=== PATIENT | female | born 1950 | race Caucasian/White ===

== ENCOUNTER → 2017-12-21 | Outpatient (CLI) | payer MEDICARE, BC ==
--- NOTE | 2017-12-21 08:19 | US ---
EXAMINATION TYPE: US thyroid st tissue head/neck DATE OF EXAM: 12/21/2017 COMPARISON: NONE CLINICAL HISTORY: E04.2 Nontoxic multinodular goiter. Hx of nodules. Patient states she has had biop sy in the past= benign. Patient states not being on any thyroid medications. GLAND SIZE: Right Lobe: 5.4 x 3.5 x 3.1 cm Overall Parenchyma: heterogenous Left Lobe: 4.9 x 2.3 x 2.4 cm Overall Parenchyma: heterogeneous Isthmus Thickness: 1.0 cm NODULES RIGHT: # of nodules measured on right: 3 Multiple nodules seen. Prominent nodules are measured. 1. 0.5 X 0.6 cm calcification at the upper pole with well-defined margins. This nodule is wider th an tall. Prior size: No prior 2. 1.3 X 1.3 x 1.3 cm hypoechoic solid nodule at the mid pole with irregular margins; interrupted pe ripheral calcification. This nodule is taller than wide and shows intranodular vascularity. Prior size: No prior 3. 2.8 X 2.7 x 1.2 cm isoechoic solid nodule at the mid pole with well-defined margins. This nodule is taller than wide and shows intranodular vascularity. Prior size: No prior LEFT: # of nodules measured on left: 2 Multiple nodules seen. Prominent nodules measured. 1. 0.6 X 0.5 x 0.5 cm hypoechoic solid nodule at the lower pole with irregular margins; interrupted peripheral calcification. This nodule is taller than wide and shows no intranodular vascularity. Prior size: No prior 2. 2.1 X 2.1 x 1.3 cm hypoechoic solid nodule at the mid pole with well-defined margins. This nodul e is taller than wide and shows intranodular vascularity. Prior size: No prior ISTHMUS: # of nodules measured in the isthmus: 1 1. 1.3 X 1.2 x 1.2 cm hypoechoic solid nodule right lateral with irregular margins. This nodule is taller than wide and shows no intranodular vascularity. Prior size: No prior Bilateral neck scanned, no evidence of lymphadenopathy. Right thyroid lobe appears enlarged. IMPRESSION: Multiple nonspecific thyroid nodules. The need to biopsy should be made on a clinical basis. Correlat e clinically with thyroid function testing and clinical findings.
== END | disposition home or self-care (01) ==
LOC: RADUSWWP 07:34
PROVIDERS: ATTEND Internal Medicine Endocrinology, Diabetes & Metabolism
DX: E04.2 Nontoxic multinodular goiter (principal)
CPT/HCPCS: 36415; 76536; 84443

== ENCOUNTER → 2018-02-21 | Outpatient (CLI) | payer MEDICARE, BC ==
--- NOTE | 2018-02-22 09:43 | MM ---
Reason for exam: screening (asymptomatic). Last mammogram was performed 2 years and 1 month ago. History: Patient is postmenopausal and is nulliparous. Family history of breast cancer in maternal aunt. Took estrogen for 3 years beginning at age 51. Took progesterone for 3 years beginning at age 51. Physical Findings: A clinical breast exam by your physician is recommended on an annual basis and results should be correlated with mammographic findings. MG 3D Screening Mammo W/Cad Bilateral CC and MLO view(s) were taken. Prior study comparison: January 08, 2016, bilateral MG screening mammo w CAD. November 22, 2014, bilateral MG screening mammo w CAD. The breast tissue is heterogeneously dense. This may lower the sensitivity of mammography. Stable benign calcifications. There is no discrete abnormality. No significant changes when compared with prior studies. ASSESSMENT: Benign, BI-RAD 2 RECOMMENDATION: Routine screening mammogram of both breasts in 1 year.
== END | disposition home or self-care (01) ==
LOC: RADMAMWWP 08:35
PROVIDERS: ATTEND Family Medicine
DX: Z12.31 Encounter for screening mammogram for malignant neoplasm of breast (principal)
CPT/HCPCS: 77063; 77067

== ENCOUNTER 2018-08-11 19:04 | Emergency (ER) | payer MEDICARE, BC ==
[2018-08-11 19:19] VITALS: BP 136/74; PULSE 78; RESP 18; TEMP 98.4
[2018-08-11] MEDS ORDERED: ACETAMINOPHEN TAB 325 MG TAB PO STA (20:11)
--- NOTE | 2018-08-11 20:13 | ED ---
Head Injury HPI - General Chief complaint: Head Injury Stated complaint: Fall-head injury Time Seen by Provider: 08/11/18 19:57 Source: patient Mode of arrival: ambulatory Limitations: no limitations - History of Present Illness Initial comments: This is a 67-year-old female who presents to the emergency department with chief complaint of fall and head injury. Patient states that at approximately 5 PM this evening she was working in her barn. She states that 2 hay sanjana fell and hit her causing her to fall backward and striking her head on a ladder. Patient reports that she was bleeding from the back of her head. Denies loss of consciousness, nausea or vomiting, dizziness. She does report a mild headache rated as 3/10. Denies any vision changes. Denies neck or back pain. Denies any other injuries or trauma. Patient states that she does not take any blood thinners. - Related Data Allergies/Adverse reactions: Allergies Allergy/AdvReac Type Severity Reaction Status Date / Time No Known Allergies Allergy Verified 08/11/18 19:19 Review of Systems ROS Statement: Those systems with pertinent positive or pertinent negative responses have been documented in the HPI. ROS Other: All systems not noted in ROS Statement are negative. Past Medical History Past Medical History: Hyperlipidemia History of Any Multi-Drug Resistant Organisms: None Reported Additional Past Surgical History / Comment(s): Surgery on pancreas. Past Psychological History: No Psychological Hx Reported Smoking Status: Current every day smoker Past Alcohol Use History: None Reported Past Drug Use History: None Reported General Exam - General Exam Comments Initial Comments: General: Awake and alert, well-developed; in no apparent distress. HEENT: Hematoma posterior scalp. Approximately 1 cm laceration right posterior scalp. Bleeding is controlled. Pupils are equal, round and reactive to light. Extraocular movements intact. Oropharynx moist without erythema or exudate. Bilateral TMs pearly without effusion. Neck: Supple. Normal ROM. Cardiovascular: Regular rate and rhythm. No murmurs, rubs or gallops. Chest symmetrical. Respiratory: Lungs clear to auscultation bilaterally. No wheezes, rales or rhonchi. Normal respiratory effort with no use of accessory muscles. Musculoskeletal: Normal ROM, no tenderness bilateral upper and lower extremities. Ambulating normally. Skin: [place], warm and dry without rashes or lesions. Neurological: Alert and oriented x3. CN II-XII grossly intact. Speech is fluent and answers are appropriate. No focal neuro deficits. Psychiatric: Normal mood and affect. No overt signs of depression or anxiety noted. Limitations: no limitations Course Vital Signs 08/11/18 19:16 Temperature 98.4 F Pulse Rate 78 Respiratory 18 Rate Blood Pressure 136/74 O2 Sat by Pulse 99 Oximetry Medical Decision Making - Medical Decision Making This is a 67-year-old female who presents to the emergency department with chief complaint of head injury. Patient is not on any blood thinners. No loss of consciousness, nausea or vomiting, dizziness. She does report a mild headache. No focal neuro deficits on exam. There is an approximately 1 cm laceration to the right posterior scalp. 2 soni were placed and patient tolerated well without complication. A computed tomography scan of the brain and C-spine were obtained and revealed no acute abnormalities. Patient's vital signs have been stable and she is in no acute distress. She is discharged home at this time. Recommended removal of soni in 5 days. She is in agreement with plan and voices understanding. All questions have been answered. - Radiology Data Radiology results: report reviewed Computed tomography scan brain and C-spine without contrast impression: Negative computed tomography scan of the brain. Spondylotic changes in the cervical spine. No fracture. Disposition Clinical Impression: Closed head injury, Scalp laceration Disposition: HOME SELF-CARE Condition: Good Additional Instructions: Patient given paper discharge instructions as computer systems were down. Is patient prescribed a controlled substance at d/c from ED?: No Referrals: Blue Willard DO [Primary Care Provider] - 1-2 days
--- NOTE | 2018-08-11 21:18 | CT ---
EXAMINATION TYPE: CT brain nona lee DATE OF EXAM: 08/11/2018 COMPARISON: None HISTORY: fall, posterior head injury headache. Neck pain. CT DLP: 1292.5 mGycm Automated exposure control for dose reduction was used. TECHNIQUE: CT scan of the head and cervical spine are performed without contrast. FINDINGS: Ventricles of normal size. There is no mass effect nor midline shift. There is no sign of intracranial hemorrhage. Calvarium is intact. The cervical vertebra have normal alignment. There is degenerative disc space narrowing at C4-5 and C 5-6. There is spurring of the endplates. Skull base is intact. Posterior elements are intact. There i s no evidence of a fracture. IMPRESSION: Negative CT scan of the brain. Spondylotic changes in the cervical spine. No fracture.
== END 2018-08-11 21:53 | disposition home or self-care (01) ==
LOC: EC 19:04
DX: S01.01XA Laceration without foreign body of scalp, initial encounter (principal); F17.200 Nicotine dependence, unspecified, uncomplicated; W18.09XA Striking against other object with subsequent fall, initial encounter; Y92.71 Barn as the place of occurrence of the external cause
CPT/HCPCS: 12001; 70450; 72125; 99283

== ENCOUNTER → 2018-12-22 | Outpatient (CLI) | payer MEDICARE, BC ==
[2018-12-22 09:52] LABS: T4, Free (Free Thyroxine) 0.82 ng/dL (0.78-2.19)
--- NOTE | 2018-12-22 10:39 | US ---
EXAMINATION TYPE: US thyroid st tissue head/neck DATE OF EXAM: 12/22/2018 COMPARISON: 12/21/2017 CLINICAL HISTORY: 68-year-old female Nontoxic multinodular goiter E04.2. Technique: Multiple sonographic images of the thyroid gland are obtained. FINDINGS: GLAND SIZE: Right Lobe: 5.6 x 3.4 x 3.1 cm Overall Parenchyma: heterogenous Left Lobe: 4.9 x 2.7 x 2.4 cm Overall Parenchyma: heterogeneous Isthmus Thickness: 0.8 cm NODULES RIGHT: # of nodules measured on right: 3 1. 1.3 X 1.3 x 1.0 cm peripherally calcified round nodule at the upper pole with well-defined candie ns; present with microcalcifications. This nodule is wider than tall and shows intranodular vascular ity. Prior size: 1.2 x 1.2 cm. 2. 2.2 X 1.5 x 2.1 nodule at the inferior pole, posteriorly, with well-defined margins; . This nodu le is and shows intranodular vascularity Prior size: 1.3 x 1.3 x 1.3 cm 3.2.6 x 1.5 x 2.7 cm solid nodule at the mid pole with well-defined margins; . This nodule is wider than tall and shows intranodular vascularity. Prior size: 2.8 x 2.7 x 1.2 cm LEFT: # of nodules measured on left: 2 1. 0.5 X 0.6 x 0.6 cm hypoechoic solid nodule at the lower pole with irregular margins; . This nod ule is round and shows intranodular vascularity. Prior size: 0.6 x 0.5 x 0.5 cm 2. 2.4 X 2.1 x 1.8 cm solid nodule at the mid pole with well-defined margins; . This nodule is tall er than wide and shows intranodular vascularity. Prior size: 2.1 x 2.1 x 1.3 cm ISTHMUS: # of nodules measured in the isthmus: 1 1. 1.3 X 0.6 x 1.0 cm echogenic solid nodule at the rt pole with irregular margins; . This nodule i s taller than wide and shows no intranodular vascularity. Prior size: 1.3 x 1.2 x 1.2 cm Bilateral neck scanned, no evidence of lymphadenopathy. IMPRESSION: 1. Multinodular goiter. Numerous bilateral nodules are present. 2. A dominant nodule posterior lower pole on the right measures 2.2 cm and appears larger, previously measuring 1.3 cm. Short interval follow-up recommended with attention to this nodule. There is some difficulty in clearly matching nodule to nodule and this may account for a potential discrepancy.
== END | disposition home or self-care (01) ==
LOC: RADUSWWP 07:24
PROVIDERS: ATTEND Internal Medicine Endocrinology, Diabetes & Metabolism
DX: E04.2 Nontoxic multinodular goiter (principal)
CPT/HCPCS: 76536; 84439; 84443

== ENCOUNTER → 2019-02-07 | Outpatient (CLI) | payer MEDICARE, BC ==
[2019-02-07 16:04] LABS: T4, Free (Free Thyroxine) 0.9 ng/dL (0.80-1.80)
== END | disposition home or self-care (01) ==
LOC: LABWHC1 07:53
PROVIDERS: ATTEND Internal Medicine Endocrinology, Diabetes & Metabolism
DX: E04.2 Nontoxic multinodular goiter (principal)
CPT/HCPCS: 36415; 84439; 84443

== ENCOUNTER → 2019-05-02 | Outpatient (CLI) | payer MEDICARE, BC ==
--- NOTE | 2019-05-03 10:08 | MM ---
Reason for exam: screening (asymptomatic). Last mammogram was performed 1 year and 2 months ago. History: Patient is postmenopausal and is nulliparous. Family history of breast cancer in maternal aunt. Took estrogen for 3 years beginning at age 51. Took progesterone for 3 years beginning at age 51. Physical Findings: A clinical breast exam by your physician is recommended on an annual basis and results should be correlated with mammographic findings. MG 3D Screening Mammo W/Cad Bilateral CC and MLO view(s) were taken. Prior study comparison: February 21, 2018, bilateral MG 3d screening mammo w/cad. January 08, 2016, bilateral MG screening mammo w CAD. The breast tissue is heterogeneously dense. This may lower the sensitivity of mammography. Benign appearing bilateral calcifications. No suspicious abnormality. No significant changes when compared with prior studies. ASSESSMENT: Benign, BI-RAD 2 RECOMMENDATION: Routine screening mammogram of both breasts in 1 year.
== END | disposition home or self-care (01) ==
LOC: RADMAMWWP 07:43
PROVIDERS: ATTEND Family Medicine
DX: Z12.31 Encounter for screening mammogram for malignant neoplasm of breast (principal); Z80.3 Family history of malignant neoplasm of breast
CPT/HCPCS: 77063; 77067

== ENCOUNTER → 2019-09-25 | Outpatient (CLI) | payer MEDICARE, BC ==
--- NOTE | 2019-09-25 10:48 | US ---
EXAMINATION TYPE: US thyroid st tissue head/neck DATE OF EXAM: 09/25/2019 COMPARISON: US 12/22/2018 and 12/21/2017 CLINICAL HISTORY: Nontoxic multinodular goiter E04.2. Patient stated does not take thyroid medicatio n. GLAND SIZE: Right Lobe: 5.1 x 3.0 x 3.4 cm Overall Parenchyma: heterogenous Left Lobe: 6.1 x 2.4 x 2.4 cm Overall Parenchyma: heterogeneous Isthmus Thickness: 0.7 cm NODULES RIGHT: # of nodules measured on right: 3 largest and as previously measured 1. 1.1 X 1.3 x 1.1 cm hypoechoic solid nodule at the upper pole with calcified margins; interrupted peripheral calcification. This nodule is wider than tall and shows intranodular vascularity. Prior size: 1.3 x 1.3 x 1.0 cm. On the exam of 2017 this measured only 0.6 cm. 2. 2.9 X 2.3 x 1.4 cm isoechoic solid nodule at the mid pole with well-defined margins. This nodule is wider than tall and shows intranodular vascularity. Prior size: 2.8 x 2.7 x 1.2 cm 3. 1.6 X 1.4 x 1.1 cm isoechoic solid nodule at the lower pole with well-defined margins. This nodu le is wider than tall and shows minimal intranodular vascularity. Prior size: 2.2 x 1.5 x 2.1 cm LEFT: # of nodules measured on left: 2 measured as previously imaged 1. 2.6 X 2.2 x 1.5 cm isoechoic solid nodule at the mid lower pole with well-defined margins. This nodule is wider than tall and shows intranodular vascularity. Prior size: 2.4 x 2.1 x 1.8 cm 2. 0.7 X 0.6 x 0.5 cm hypoechoic solid nodule at the lower pole with well-defined calcified margins ; interrupted peripheral calcification. This nodule is wider than tall and shows no intranodular vas cularity. Prior size: 0.6 x 0.5 x 0.6 cm ISTHMUS: # of nodules measured in the isthmus: 2 1. 2.3 X 1.2 x 0.7 cm hypoechoic mixed nodule at the upper pole with well-defined margins. This no dule is wider than tall and shows no intranodular vascularity. Prior size: 1.3 x 0.3 x 1.0 cm 2. 1.3 X 1.2 x 1.3 cm isoechoic solid nodule at the inferior right medial pole with well-defined mar gins. This nodule is taller than wide and shows intranodular vascularity. Bilateral neck scanned: no evidence of lymphadenopathy. IMPRESSION: A new isthmus thyroid nodule is seen measuring 2.3 cm. In an overall multinodular goiter consideration could be given to either nuclear medicine thyroid scan to evaluate for cold nodule or p ercutaneous biopsy.
[2019-09-25 11:03] LABS: T4, Free (Free Thyroxine) 0.77 ng/dL (0.78-2.19)
== END | disposition home or self-care (01) ==
LOC: RADUSWWP 08:51
PROVIDERS: ATTEND Internal Medicine Endocrinology, Diabetes & Metabolism
DX: E04.2 Nontoxic multinodular goiter (principal)
CPT/HCPCS: 76536; 84439; 84443

== ENCOUNTER → 2020-10-14 | Outpatient (CLI) | payer MEDICARE, BC ==
[2020-10-14 15:20] LABS: T4, Free (Free Thyroxine) 0.84 ng/dL (0.78-2.19)
--- NOTE | 2020-10-14 16:46 | US ---
EXAMINATION TYPE: US thyroid st tissue head/neck DATE OF EXAM: 10/14/2020 COMPARISON: 09/25/2019 CLINICAL HISTORY: 70-year-old female E04.2 NONTOXIC MULTINODULAR GOITER. Goiter. Not on thyroid meds . Hx thyroid FNA. Difficulty swallowing. TECHNIQUE: Multiple sonographic images of the thyroid gland are obtained. FINDINGS: GLAND SIZE: Right Lobe: 6.0 x 2.9 x 3.1 cm Overall Parenchyma: heterogenous Left Lobe: 5.3 x 2.6 x 2.2 cm Overall Parenchyma: heterogeneous Isthmus Thickness: 0.7 cm Background parenchymal hyperemia. NODULES- Multiple nodules seen bilaterally, largest and most prominent measured. Unable to accuratel y determine if today's nodules were previously measured due to goiter appearance. RIGHT: # of nodules measured on right: 3 1. 1.3 X 1.5 x 1.2 cm solid or almost completely solid, hypoechoic nodule, which is wider than tall , with smooth margins, with echogenic rim foci. Prior size: 1.1 x 1.3 x 1.1 cm 2. 3.1 X 2.6 x 1.3 cm solid or almost completely solid, isoechoic nodule, which is wider than tall, with smooth margins, without echogenic foci. Prior size: 2.9 x 2.3 x 1.4 cm 3. 0.6 X 0.6 cm , Calcification in upper pole Prior size: no prior LEFT: # of nodules measured on left: 3 1. 1.6 X 1.7 x 1.2 cm solid or almost completely solid, isoechoic nodule, which is wider than tall, with smooth margins, without echogenic foci. Prior size: Not measured on previous exam 2. 0.6 X 0.7 x 0.6 cm solid or almost completely solid, hypoechoic nodule, which is wider than tall , with smooth margins, with echogenic rim foci. Prior size: 0.7 x 0.6 x 0.5 cm 3. 3.1 X 2.6 x 2.5 cm solid or almost completely solid, isoechoic nodule, which is wider than tall, with lobulated or irregular margins, without echogenic foci. Appears to have combined nodule appear ance. Prior size: 2.6 x 2.2 x 1.5 cm ISTHMUS: # of nodules measured in the isthmus: 2 1. 1.3 X 1.3 x 1.1 cm solid or almost completely solid, hypoechoic nodule, which is wider than tall , with smooth margins, without echogenic foci. Prior size: 2.3 x 1.2 x 0.7 cm 2. 1.3 X 1.2 x 0.6 cm , hypoechoic nodule, which is wider than tall, with smooth margins, without e chogenic foci. Prior size: 1.3 x 1.2 x 1.3 cm Bilateral neck scanned, no evidence of lymphadenopathy. IMPRESSION: 1. Multinodular goiter. 2. A heterogeneous dominant nodule at the left midpole appears larger at 3.1 x 2.6 cm (versus 2.6 x 2 .2 cm, previously). The decision to biopsy should be made on a clinical basis. 3. A 1.6 cm nodule at the left upper pole was previously not measured but review of the prior images suggests that it most likely was present at that time as well. Attention on follow-up. 4. A dominant solid nodule on the right is minimally larger at 3.1 x 2.6 cm (versus 2.9 x 2.3 cm, pre viously). Attention on follow-up.
== END | disposition home or self-care (01) ==
LOC: RADUSWWP 12:20
PROVIDERS: ATTEND Internal Medicine Endocrinology, Diabetes & Metabolism
DX: E04.2 Nontoxic multinodular goiter (principal)
CPT/HCPCS: 36415; 76536; 84439; 84443

== ENCOUNTER → 2021-01-21 | Outpatient (CLI) | payer MEDICARE, BC ==
--- NOTE | 2021-01-23 09:38 | MM ---
Reason for exam: screening (asymptomatic). Last mammogram was performed 1 year and 9 months ago. History: Patient is postmenopausal and is nulliparous. Family history of breast cancer in maternal aunt. Took estrogen for 3 years beginning at age 51. Took progesterone for 3 years beginning at age 51. Physical Findings: A clinical breast exam by your physician is recommended on an annual basis and results should be correlated with mammographic findings. MG 3D Screening Mammo W/Cad Bilateral CC and MLO view(s) were taken. Prior study comparison: May 02, 2019, bilateral MG 3d screening mammo w/cad. February 21, 2018, bilateral MG 3d screening mammo w/cad. The breast tissue is heterogeneously dense. This may lower the sensitivity of mammography. No significant changes when compared with prior studies. ASSESSMENT: Negative, BI-RAD 1 RECOMMENDATION: Routine screening mammogram of both breasts in 1 year. Patient should continue monthly self breast exams. A negative report should not preclude additional follow up of suspicious palpable abnormalities.
== END | disposition home or self-care (01) ==
LOC: RADMAMWWP 10:10
PROVIDERS: ATTEND Family Medicine
DX: Z12.31 Encounter for screening mammogram for malignant neoplasm of breast (principal); Z78.0 Asymptomatic menopausal state; Z80.3 Family history of malignant neoplasm of breast
CPT/HCPCS: 77063; 77067

== ENCOUNTER → 2021-01-21 | Outpatient (CLI) | payer MEDICARE, BC ==
[2021-01-21 19:40] LABS: T4, Free (Free Thyroxine) 0.8 ng/dL (0.80-1.80)
== END | disposition home or self-care (01) ==
LOC: LABWHC1 10:33
PROVIDERS: ATTEND Internal Medicine Endocrinology, Diabetes & Metabolism
DX: E04.2 Nontoxic multinodular goiter (principal)
CPT/HCPCS: 36415; 84439; 84443

== ENCOUNTER → 2022-02-05 | Outpatient (CLI) | payer MEDICARE, BC ==
--- NOTE | 2022-02-07 14:47 | MM ---
Reason for Exam: Screening (asymptomatic). Last mammogram was performed 1 year(s) and 1 month(s) ago. Patient History: Menarche at age 13. Patient has no children. Postmenopausal. Estrogen for 3 years from age 51 until age 54. Progesterone for 3 years from age 51 until age 54. Maternal aunt had breast cancer. Maternal cousin had breast cancer under age 50. Risk Values: Kaci 5 year model risk: 2.1%. NCI Lifetime model risk: 6.4%. Prior Study Comparison: 02/21/2018 Bilateral Screening Mammogram, [facility]. 05/02/2019 Bilateral Screening Mammogram, [facility]. 01/21/2021 Bilateral Screening Mammogram, [facility]. Tissue Density: The breast tissue is heterogeneously dense. This may lower the sensitivity of mammography. Findings: Analyzed By CAD. Benign oil cyst calcifications on both sides. Areas of asymmetric density remains unchanged. No significant change from prior exams. Overall Assessment: Benign, BI-RAD 2 Management: Screening Mammogram of both breasts in 1 year. A clinical breast exam by your physician is recommended on an annual basis and results should be correlated with mammographic findings. Also, the patient should continue monthly self breast exams. Electronically signed and approved by: Jeane Farrar M.D. Radiologist
== END | disposition home or self-care (01) ==
LOC: RADMAMWWP 09:10
PROVIDERS: ATTEND Family Medicine
DX: Z12.31 Encounter for screening mammogram for malignant neoplasm of breast (principal); Z78.0 Asymptomatic menopausal state; Z80.3 Family history of malignant neoplasm of breast
CPT/HCPCS: 77063; 77067

== ENCOUNTER → 2022-02-05 | Outpatient (CLI) | payer MEDICARE, BC ==
[2022-02-05 15:16] LABS: T4, Free (Free Thyroxine) 0.94 ng/dL (0.800-1.800)
--- NOTE | 2022-02-05 16:07 | US ---
EXAMINATION TYPE: US thyroid st tissue head/neck DATE OF EXAM: 02/05/2022 COMPARISON: NONE CLINICAL HISTORY: E04.2 NONTOXIC MULTINODULAR GOITER. thyroid nodules GLAND SIZE: Right Lobe: 6.1 x 3.5 x 3.2 cm Overall Parenchyma: heterogenous Left Lobe: 6.3 x 2.8 x 2.8 cm Overall Parenchyma: heterogeneous Isthmus Thickness: 0.4 cm NODULES RIGHT: # of nodules measured on right: 3 1. 1.2 X 1.2 x 1.5 cm, , solid or almost completely solid, hypoechoic nodule, which is wider than t all, with smooth margins echogenic rim foci. TR4 Prior size: 1.3 x 1.2 x 1.5 cm 2. 3.1 X 1.2 x 2.9 cm, , solid or almost completely solid, isoechoic nodule, which is wider than ta ll, with smooth margins, without echogenic foci. Prior size: 3.1 x 1.3 x 2.6 cm 3. 0.6 x 0.6 cm, calcification upper pole Prior size: 0.6 x 0.6 cm LEFT: # of nodules measured on left: 2 1. 1.6 X 1.0 x 1.4 cm, , solid or almost completely solid, isoechoic nodule, which is wider than ta ll, with smooth margins, without echogenic foci. Prior size: 1.6 x 1.2 x 1.7 cm 2. 3.2 X 2.5 x 2.5 cm, , solid or almost completely solid, isoechoic nodule, which is wider than t all, with lobulated or irregular margins, without echogenic foci., TR4 Prior size: 3.1 x 2.5 x 2.6 cm ISTHMUS: # of nodules measured in the isthmus: 2 1. 1.4 X 1.2 x 1.3 cm solid or almost completely solid, hypoechoic nodule, which is wider than tall , with smooth margins, without echogenic foci. Prior size: 1.3 x 1.1 x 1.3 cm 2. 1.1 X 0.6 x 1.2 cm solid or almost completely solid, hypoechoic nodule, which is wider than tall , with smooth margins, without echogenic foci. Prior size: 1.3 x 0.6 x 1.2 cm Bilateral neck scanned, no evidence of lymphadenopathy. IMPRESSION: 1. Moderately suspicious nodule right lobe thyroid. Fine-needle aspiration recommended. 2. Mildly suspicious nodule left lobe thyroid, Stable from comparison. Fine-needle aspiration recomm ended. 2017 ACR TI-RADS LEVEL: TR-RADS 4 - Moderately Suspicious: Follow if > 1 cm, FNA if > 1.5 cm *Highest TI-RADS level nodule reported
== END | disposition home or self-care (01) ==
LOC: RADUSWWP 09:05
PROVIDERS: ATTEND Internal Medicine Endocrinology, Diabetes & Metabolism
DX: E04.2 Nontoxic multinodular goiter (principal)
CPT/HCPCS: 76536; 84439; 84443

== ENCOUNTER → 2024-05-22 | Outpatient (CLI) | payer MEDICARE, BC ==
--- NOTE | 2024-05-22 12:21 | NM ---
EXAMINATION TYPE: NM thyroid image only DATE OF EXAM: 05/22/2024 COMPARISON: NONE CLINICAL INDICATION: Female, 73 years old with history of E05.02 MULTINODULAR GOITER; TECHNIQUE: After the intravenous administration of 10.1 mCi Tc 99m Sodium Pertechnetate. FINDINGS: There is heterogeneous uptake bilaterally of the thyroid. Cold defect involving the mid and lower blake e of the right thyroid and lower pole of the left thyroid. IMPRESSION: Bilateral cold-appearing thyroid nodules. Recommend ultrasound of the thyroid. [facility], , 05/22/2024 12:18 PM
[2024-05-22 15:27] LABS: ALT 16 U/L (8-44); AST 15 U/L (13-35); Albumin 4.3 g/dL (3.8-4.9); Albumin/Globulin Ratio 1.87 Ratio (1.60-3.17); Alkaline Phosphatase 80 U/L (41-126); Blood Urea Nitrogen 14.4 mg/dL (9.0-27.0); Calcium 9.4 mg/dL (8.7-10.3); Carbon Dioxide 25.6 mmol/L (21.6-31.8); Chloride 105 mmol/L (96-109); Chol/HDL Ratio 3.38 Ratio; Globulin 2.3 g/dL (1.6-3.3); Glucose 94 mg/dL (70-110); LDL Cholesterol,Calculated 111.7 mg/dL (0.0-131.0); Sodium 140 mmol/L (135-145); T4, Free (Free Thyroxine) 0.96 ng/dL (0.80-1.80); Total Bilirubin 0.3 mg/dL (0.3-1.2); Total Protein 6.6 g/dL (6.2-8.2)
--- NOTE | 2024-05-29 08:19 | MM ---
Reason for Exam: Screening (asymptomatic). Last mammogram was performed 2 year(s) and 3 month(s) ago. Patient History: Menarche at age 13. Patient has no children. Postmenopausal. Estrogen for 3 years from age 51 until age 54. Progesterone for 3 years from age 51 until age 54. Maternal aunt had breast cancer. Maternal cousin had breast cancer under age 50. Risk Values: Kaci 5 year model risk: 2.1%. NCI Lifetime model risk: 5.9%. Prior Study Comparison: 05/02/2019 Bilateral Screening Mammogram, [facility]. 01/21/2021 Bilateral Screening Mammogram, [facility]. 02/05/2022 Bilateral MG 3D screening mammo w/cad, [facility]. Tissue Density: The breasts are heterogeneously dense, which may obscure small masses. Findings: Analyzed By CAD. Right breast: There is no suspicious group of microcalcifications or new suspicious mass. Benign-appearing calcifications right breast. Left breast: There is no suspicious group of microcalcifications or new suspicious mass. Benign-appearing calcifications left breast. Overall Assessment: Benign, BI-RAD 2 Management: Screening Mammogram of both breasts in [address] [facility] will attempt to contact patient to return for supplemental views and ultrasound if indicated. Patient should continue monthly self-breast exams. A clinical breast exam by your physician is recommended on an annual basis. This exam should not preclude additional follow-up of suspicious palpable abnormalities. Note on Kaci scores and lifetime risk: 1. A Kaci score greater than 3% is considered moderate risk. If this is the case, consider specialist referral to assess eligibility for a risk reducing agent. 2. If overall lifetime risk for the development of breast cancer is 20% or higher, the patient may qualify for future screening with alternating mammogram and breast MRI. [facility], , 05/29/2024 8:16 AM. Electronically signed and approved by: Harish Shoemaker DO
== END | disposition home or self-care (01) ==
LOC: RADMAMWWP 10:18
PROVIDERS: ATTEND Family Medicine
DX: Z12.31 Encounter for screening mammogram for malignant neoplasm of breast (principal); E04.2 Nontoxic multinodular goiter; E03.9 Hypothyroidism, unspecified; E78.5 Hyperlipidemia, unspecified; R92.333 Mammographic heterogeneous density, bilateral breasts; R92.1 Mammographic calcification found on diagnostic imaging of breast; Z78.0 Asymptomatic menopausal state; Z80.3 Family history of malignant neoplasm of breast
CPT/HCPCS: 36415; 77063; 77067; 78013; 80053; 80061; 84439; 84443

== ENCOUNTER → 2024-05-31 | Outpatient (CLI) | payer MEDICARE, BC ==
--- NOTE | 2024-05-31 16:35 | US ---
EXAMINATION TYPE: US thyroid st tissue head/neck DATE OF EXAM: 05/31/2024 COMPARISON: 02/05/22 CLINICAL INDICATION: Female, 73 years old with history of E04.1 THYROID NODULE; Hx of thyroid nodules . Pt has had multiple biopsies and they have been benign. TECHNIQUE: Grayscale and color Doppler imaging of the thyroid gland. GLAND SIZE: Right Lobe: 5.5 x 3.1 x 2.8 cm Overall Parenchyma: heterogeneous Left Lobe: 6.0 x 2.7 x 2.7 cm Overall Parenchyma: heterogeneous Isthmus Thickness: 0.28 cm NODULES RIGHT: # of nodules measured on right: 0 LEFT: # of nodules measured on left: 0 ISTHMUS: # of nodules measured in the isthmus: 0 *Numerous nodules seen bilaterally. Unable to follow up on exact nodules. No normal thyroid tissue se en. Diffusely heterogeneous Bilateral neck scanned, no evidence of lymphadenopathy. IMPRESSION: Multinodular goiter bilaterally. Findings similar 02/05/2022. [facility], , 05/31/2024 4:33 PM
== END | disposition home or self-care (01) ==
LOC: RADUSWWP 15:26
PROVIDERS: ATTEND Family Medicine
DX: E04.2 Nontoxic multinodular goiter (principal); E03.9 Hypothyroidism, unspecified
CPT/HCPCS: 76536